=== PATIENT | male | born 1970 ===

== ENCOUNTER 2017-07-31 12:23 | Day surgery (SDC) | payer MEDICARE ==
[2017-07-29 12:47] VITALS: BMI 19.5
[2017-07-31 13:26] LABS: BASO # 0.05 K/mm3 (0.0-2.0); BASO % 1.5 % (0.0-3.0); EOS # 0.2 (0.0-0.7); EOS % 5.2 % (1.5-5.0); GRAN # 2.1 (1.4-6.5); GRAN % 63.9 % (50.0-68.0); HEMATOCRIT 31.2 % (42.0-52.0); LYMPH # 0.6 (1.2-3.4); LYMPH % 18.8 % (22.0-35.0); MEAN CELL VOLUME 91.2 fl (80.0-105.0); MEAN CORPUSCULAR HEMOGLOBIN 28.7 pg (25.0-35.0); MEAN CORPUSCULAR HGB CONC 31.4 g/dl (31.0-37.0); MEAN PLATELET VOLUME 11.1 fl (7.0-11.0); MONO # 0.4 (0.1-0.6); MONO % 10.6 % (1.0-6.0); RED CELL DISTRIBUTION WIDTH 15.8 % (11.5-14.5); WHITE BLOOD COUNT 3.3 10^3/ul (4.5-11.0)
[2017-07-31 13:36] LABS: INR 1.24 (0.93-1.08); PARTIAL THROMBOPLASTIN TIME 29.8 Seconds (23.7-30.8)
[2017-07-31 14:20] LABS: POTASSIUM 4.5 mmol/L (3.6-5.0)
[2017-07-31] MEDS ORDERED: Lidocaine 2% Inj (20ml) ONE (19:16)
[2017-07-31] MEDS ORDERED: Midazolam 2 MG/2 ML VIAL ONE ×2 (19:17→19:30)
[2017-07-31] MEDS ORDERED: Oxycodone/Acetaminophen 5/325 mg Tab PO PRN (20:21)
[2017-07-31 20:34] VITALS: TEMP 98.1; O2SAT 98
[2017-07-31 20:37] VITALS: BP 133/87; PULSE 57; RESP 18
--- NOTE | 2017-07-31 22:51 | VASCULAR ---
PROCEDURE: Percutaneous exchange trans lumbar tunneled dialysis catheter HISTORY: End-stage renal disease. Translumbar tunneled dialysis catheter. Poor flow rates. PHYSICIAN(S): Dennis Rodgers MD. TECHNIQUE: The relative risks and indications of the procedure were explained the patient consent obtained. The patient was placed prone on the CT urography table and the old catheter prepped and draped usual sterile fashion. Conscious sedation monitoring were provided throughout the procedure by a nurse. The catheter at the cuff was anesthetized and bluntly dissected. The catheter was a transected. The hub was removed. 0.035 support wire was placed in the right atrium. The old dialysis catheter was removed. A new peel-away sheath was placed. Next a air 0 tunneled dialysis catheter 35 cm in length was advanced with its tip in the right atrium. Catheter was tunneled to the right flank. The catheter was flushed and secured. The patient tolerated the procedure well. FINDINGS: . IMPRESSION: Percutaneous exchange for a new tunneled trans lumbar dialysis catheter as described above
== END 2017-07-31 22:37 | disposition home or self-care (01) ==
LOC: SDS 12:23 → 5RNO 20:50 → SDS 22:37
PROVIDERS: ATTEND Radiology Vascular & Interventional Radiology
DX: I12.0 Hypertensive chronic kidney disease with stage 5 chronic kidney disease or end stage renal disease (principal); N18.6 End stage renal disease
CPT/HCPCS: 36415; 36581; 80048; 85025; 85610; 85730; 99152; 99153; C1752; C1769; J0690; J1644; J2250; J2405; J3010